=== PATIENT | male | born 1960 | race African-American/Black ===

== ENCOUNTER 2024-06-23 07:11 | Inpatient (IN) | payer MEDICARE ==
[~2024-06-23] VITALS: Ht 170.2 cm; Wt 72.3 kg
[~2024-06-23 07:11] MED LIST: AMLO10TA80 PO; ASPI-1406 PO; ATOR20TA MT; CLOP-31 PO; FAMO20TA8 PO; HYDR100T11 PO; ISOS60TA76 PO; METO25TA6 PO
[2024-06-23 07:35] LABS: BASOPHILS % 0.6 % (0.0-2.0); EOSINOPHILS % 12.6 % (0.0-5.0); HEMOGLOBIN. 11.8 g/dL (14.0-18.0); LYMPHOCYTES % 25.8 % (20.0-50.0); MEAN CORPUSCULAR HEMOGLOBIN 27.3 pg (28.0-32.0); MEAN CORPUSCULAR HGB CONC 31.9 g/dL (31.0-37.0); MEAN CORPUSCULAR VOLUME 85.4 fL (80.0-94.0); MEAN PLATELET VOLUME 9.2 fl (7.4-10.4); PLATELET 154 x1000/uL (130-400); RED BLOOD CELL COUNT 4.33 mill/uL (4.7-6.1); RED CELL DISTRIBUTION WIDTH 15.7 % (11.6-14.6); WHITE BLOOD COUNT 4.8 x1000/uL (4.5-11.0)
[2024-06-23 07:45] LABS: CHLORIDE 111 mEq/L (98-107); POTASSIUM 3.8 mEq/L (3.5-5.1); SODIUM 142 mEq/L (136-145)
[2024-06-23 07:46] LABS: CALCIUM 8.8 mg/dL (8.7-10.4); CARBON DIOXIDE 25 mEq/L (21-32)
[2024-06-23 07:51] LABS: CREATININE 1.5 mg/dL (0.6-1.3); GLUCOSE 113 mg/dL (70-105); UREA NITROGEN BLOOD 17 mg/dL (9-23)
[2024-06-23 07:52] LABS: TROPONIN I HIGH SENSITIVITY 35 ng/L (3.0-53)
[2024-06-23] MEDS: METHYLPREDNISOLONE SOD SUCC 125MG/2ML (ACT-O-VIAL) IV STA (07:53)
[2024-06-23] MEDS: ASPIRIN 81MG TABLET PO ONE (07:54)
[2024-06-23] MEDS: NITROGLYCERIN OINT 1GM/INCH UDPKT TD NR (08:20)
[2024-06-23] MEDS: ALBUTEROL (0.083%) 2.5MG/3ML NEB HHN SCH (08:20)
[2024-06-23 08:21] VITALS: PULSE 80; RESP 22; O2SAT 96
[2024-06-23] MEDS: IPRATROPIUM BROMIDE (0.02%) 0.5MG/2.5ML NEB HHN STA (08:21)
[2024-06-23 09:11] LABS: *AMPHETAMINES SCREEN URINE NEGATIVE (NEGATIVE); *BARBITURATES SCREEN URINE NEGATIVE (NEGATIVE); *BENZODIAZEPINES SCREEN URINE NEGATIVE (NEGATIVE); *COCAINE SCREEN URINE PRESUMPTIVE POSITIVE (NEGATIVE); METHADONE URINE SCREEN NEGATIVE (NEGATIVE)
[2024-06-23 09:12] LABS: CANNABINOID URINE SCREEN PRESUMPTIVE POSITIVE (NEGATIVE); ECSTASY MDMA SCREEN URINE NEGATIVE (NEGATIVE); OPIATES URINE SCREEN NEGATIVE (NEGATIVE); PHENCYCLIDINE URINE SCREEN NEGATIVE (NEGATIVE)
[2024-06-23] MEDS ORDERED: DEXTROSE 50% WATER 50ML SYRINGE IV PRN (10:15)
[2024-06-23] MEDS ORDERED: MAGNESIUM/ALUMINUM HYDROXIDE/SIMETHICONE 30ML UDC PO PRN (10:15)
[2024-06-23] MEDS ORDERED: DOCUSATE SODIUM 100MG CAPSULE PO PRN (10:15)
[2024-06-23] MEDS ORDERED: ONDANSETRON HCL 4MG/2ML INJ IV PRN (10:15)
[2024-06-23] MEDS: METHYLPREDNISOLONE SOD SUCC 40MG/ML (ACT-O-VIAL) IV SCH ×2 (10:52→23:13)
[2024-06-23] MEDS: AMLODIPINE 5MG TABLET PO NR (11:07)
[2024-06-23] MEDS: ENOXAPARIN 40MG/0.4ML SYR SUBCUT SCH (11:07)
[2024-06-23] MEDS: SODIUM CHLORIDE 0.45% 1,000 ML IV SCH (11:07)
[2024-06-23 11:19] LABS: LACTIC ACID 2.7 mmol/L (0.4-2.0); PHOSPHORUS 1.6 mg/dL (2.5-4.9)
[2024-06-23] MEDS: ISOSORBIDE MONONITRATE 60MG TABLET SR 24HR PO SCH (11:55)
[2024-06-23] MEDS ORDERED: IPRATROPIUM/ALBUTEROL 0.5-3(2.5)MG/3ML NEB HHN SCH (12:00)
[2024-06-23] MEDS: HYDRALAZINE 20MG/ML VIAL IV PRN (12:25)
[2024-06-23] MEDS: BLOOD SUGAR DIAGNOSTIC STRIP TEST SCH (13:00)
[2024-06-23] MEDS: POTASSIUM PHOSPHATE 20 MMOL in DEXT 5% WATER 243.3333 ML IV NR (13:19)
[2024-06-23] MEDS: HYDRALAZINE HCL 100MG TABLET PO SCH (14:12)
[2024-06-23 14:58] LABS: CREATINE KINASE MB FRACTION 2.8 ng/mL (0.5-3.6)
[2024-06-23 16:00] VITALS: BP 173/96; PULSE 92; RESP 28; TEMP 36.44736; TEMP 36.4736; O2SAT 96
[2024-06-23] MEDS: HYDRALAZINE 20MG/ML VIAL IV NR (17:40)
[2024-06-23] MEDS: NITROGLYCERIN 0.4MG TABLET SL SL PRN (18:58)
[2024-06-23 19:45] VITALS: PULSE 82; RESP 22; O2SAT 95
[2024-06-23] MEDS: IPRATROPIUM/ALBUTEROL 0.5-3(2.5)MG/3ML NEB HHN SCH (19:47)
[2024-06-23 20:00] VITALS: BP 179/96; PULSE 89; RESP 18; TEMP 36.50292; O2SAT 100
[2024-06-23] MEDS ORDERED: FAMOTIDINE 20MG TABLET PO SCH (21:00)
[2024-06-23] MEDS: FAMOTIDINE 20MG TABLET PO SCH (21:16)
[2024-06-23] MEDS: ATORVASTATIN CALCIUM 20MG TABLET PO SCH (21:16)
[2024-06-23] MEDS: AMLODIPINE 10MG TABLET PO SCH (21:17)
[2024-06-23] MEDS: ZOLPIDEM TARTRATE 5MG TABLET PO NR (23:29)
[2024-06-24] VITALS (9 sets, daily range): BP systolic 118–168; BP diastolic 60–89; PULSE 76–93; RESP 16–22; TEMP 36.44736–36.72516; O2SAT 94–99
[2024-06-24 00:37] LABS: CLARITY URINE CLEAR (CLEAR); COLOR URINE YELLOW (YELLOW); GLUCOSE URINE 1+ (NEGATIVE); KETONES URINE NEGATIVE (NEGATIVE); LEUKOCYTE ESTERASE URINE NEGATIVE (NEGATIVE); NITRITE URINE NEGATIVE (NEGATIVE); OCCULT BLOOD URINE NEGATIVE (NEGATIVE); PROTEIN URINE 1+ (NEGATIVE); SPECIFIC GRAVITY URINE 1.017 (1.005-1.030); UROBILINOGEN URINE 0.2 E.U./dL (0.2-1.0)
[2024-06-24] MEDS: HYDRALAZINE 20MG/ML VIAL IV PRN (01:25)
[2024-06-24 02:13] LABS: CREATINE KINASE MB FRACTION 3.3 ng/mL (0.5-3.6)
[2024-06-24] MEDS: ACETAMINOPHEN 325MG TABLET PO PRN (02:23)
[2024-06-24 02:46] LABS: RBC URINE NONE SEEN /hpf (0-2); WBC URINE 0-2 /hpf (0-2)
[2024-06-24 02:47] LABS: SQUAMOUS EPITHELIAL CELL URINE FEW /lpf (RARE/1+)
[2024-06-24 02:49] LABS: BACTERIA URINE NONE SEEN
[2024-06-24 06:56] LABS: POTASSIUM 4.3 mEq/L (3.5-5.1)
[2024-06-24 06:57] LABS: CALCIUM 9.3 mg/dL (8.7-10.4)
[2024-06-24 07:02] LABS: CREATININE 1.5 mg/dL (0.6-1.3)
[2024-06-24 07:04] LABS: ALBUMIN 4.2 g/dL (3.2-4.8)
[2024-06-24 07:05] LABS: ALANINE AMINOTRANSFERASE 14 IU/L (10-49); ALBUMIN 4.1 g/dL (3.2-4.8); ASPARTATE AMINOTRANSFERASE 21 IU/L (<34); BILIRUBIN DIRECT 0.1 mg/dL (<=3.0); BILIRUBIN TOTAL 0.4 mg/dL (0.1-1.0); PROTEIN TOTAL 7.6 g/dL (6.0-8.3)
[2024-06-24 07:07] LABS: THYROID STIMULATING HORMONE 0.51 uIU/mL (0.55-4.78)
[2024-06-24 07:12] LABS: HEMATOCRIT. 39.1 % (42.0-52.0); HEMOGLOBIN. 12.4 g/dL (14.0-18.0); MEAN CORPUSCULAR HEMOGLOBIN 27.1 pg (28.0-32.0); MEAN CORPUSCULAR HGB CONC 31.8 g/dL (31.0-37.0); MEAN CORPUSCULAR VOLUME 85.3 fL (80.0-94.0); MEAN PLATELET VOLUME 10.2 fl (7.4-10.4); PLATELET 167 x1000/uL (130-400); RED BLOOD CELL COUNT 4.58 mill/uL (4.7-6.1); RED CELL DISTRIBUTION WIDTH 15.7 % (11.6-14.6); WHITE BLOOD COUNT 5.8 x1000/uL (4.5-11.0)
[2024-06-24 07:51] LABS: DIFFERENTIAL COMMENT 1
[2024-06-24] MEDS: CLOPIDOGREL 75MG TABLET PO SCH (08:16)
[2024-06-24] MEDS: ASPIRIN 81MG EC TABLET PO SCH (08:21)
[2024-06-24] MEDS ORDERED: AMLODIPINE 10MG TABLET PO SCH (09:00)
[2024-06-24] MEDS: MONTELUKAST SODIUM 10MG TABLET PO SCH (21:11)
[2024-06-24] MEDS: TERBUTALINE SULFATE 1MG/ML VIAL SUBCUT SCH (21:23)
[2024-06-24] MEDS: THEOPHYLLINE ANHYDROUS 80 MG/15 ML 120ML PO SCH (22:41)
[2024-06-25] VITALS (11 sets, daily range): BP systolic 124–159; BP diastolic 57–79; PULSE 74–106; RESP 18–20; TEMP 36.28068–36.61404; O2SAT 96–100
[2024-06-25 08:17] LABS: HEMATOCRIT 36.7 % (42.0-52.0); HEMOGLOBIN 12.1 g/dL (14.0-18.0); MEAN CORPUSCULAR HEMOGLOBIN 27.9 pg (28.0-32.0); MEAN CORPUSCULAR HGB CONC 32.9 g/dL (31.0-37.0); MEAN CORPUSCULAR VOLUME 84.8 fL (80.0-94.0); PLATELET 186 x1000/uL (130-400); RED BLOOD CELL COUNT 4.33 mill/uL (4.7-6.1); RED CELL DISTRIBUTION WIDTH 15.9 % (11.6-14.6); WHITE BLOOD COUNT 8.6 x1000/uL (4.5-11.0)
[2024-06-25 08:38] LABS: CREATININE 1.7 mg/dL (0.6-1.3)
[2024-06-25] MEDS: IPRATROPIUM/ALBUTEROL 0.5-3(2.5)MG/3ML NEB HHN PRN (10:54)
[2024-06-25 11:15] LABS: PLATELET ESTIMATE NORMAL
[2024-06-25 22:43] LABS: CHLORIDE 109 mEq/L (98-107); POTASSIUM 4.3 mEq/L (3.5-5.1); SODIUM 140 mEq/L (136-145)
[2024-06-25 22:44] LABS: CARBON DIOXIDE 20 mEq/L (21-32)
[2024-06-25 22:49] LABS: GLUCOSE 125 mg/dL (70-105); UREA NITROGEN BLOOD 52 mg/dL (9-23)
[2024-06-25 22:51] LABS: PHOSPHORUS 3.3 mg/dL (2.5-4.9)
[2024-06-25 22:53] LABS: CREATININE 2.3 mg/dL (0.6-1.3)
[2024-06-25 23:18] LABS: DIFFERENTIAL COMMENT 1; HEMATOCRIT. 39.1 % (42.0-52.0); HEMOGLOBIN. 12.4 g/dL (14.0-18.0); MEAN CORPUSCULAR HEMOGLOBIN 26.9 pg (28.0-32.0); MEAN CORPUSCULAR HGB CONC 31.7 g/dL (31.0-37.0); MEAN CORPUSCULAR VOLUME 84.9 fL (80.0-94.0); MEAN PLATELET VOLUME 10.3 fl (7.4-10.4); PLATELET 217 x1000/uL (130-400); RED BLOOD CELL COUNT 4.61 mill/uL (4.7-6.1)
[2024-06-25 23:40] LABS: CREATINE KINASE MB FRACTION 4.8 ng/mL (0.5-3.6)
[2024-06-26] VITALS (10 sets, daily range): BP systolic 113–134; BP diastolic 47–73; PULSE 77–101; RESP 16–22; TEMP 36.16956–37.2252; O2SAT 96–100
[2024-06-26 00:09] LABS: ANISOCYTOSIS 1+; PLATELET ESTIMATE NORMAL
[2024-06-26 07:08] LABS: CREATINE KINASE MB FRACTION 3.7 ng/mL (0.5-3.6)
[2024-06-26 07:13] LABS: CARBON DIOXIDE 21 mEq/L (21-32); CHLORIDE 110 mEq/L (98-107); POTASSIUM 4.3 mEq/L (3.5-5.1); SODIUM 140 mEq/L (136-145)
[2024-06-26 07:14] LABS: CALCIUM 8.6 mg/dL (8.7-10.4)
[2024-06-26 07:17] LABS: CREATININE 2.3 mg/dL (0.6-1.3); T4 FREE 0.84 ng/dL (0.89-1.76); THYROID STIMULATING HORMONE 0.33 uIU/mL (0.55-4.78)
[2024-06-26 07:19] LABS: GLUCOSE 167 mg/dL (70-105); UREA NITROGEN BLOOD 59 mg/dL (9-23)
[2024-06-26 07:21] LABS: PHOSPHORUS 3.2 mg/dL (2.5-4.9)
[2024-06-26 07:23] LABS: HEMATOCRIT. 36.2 % (42.0-52.0); HEMOGLOBIN. 11.6 g/dL (14.0-18.0); MEAN CORPUSCULAR HEMOGLOBIN 27.2 pg (28.0-32.0); MEAN CORPUSCULAR VOLUME 84.8 fL (80.0-94.0); MEAN PLATELET VOLUME 10.1 fl (7.4-10.4); PLATELET 184 x1000/uL (130-400); RED BLOOD CELL COUNT 4.27 mill/uL (4.7-6.1); RED CELL DISTRIBUTION WIDTH 15.9 % (11.6-14.6); WHITE BLOOD COUNT 7.4 x1000/uL (4.5-11.0)
[2024-06-26 07:29] LABS: DIFFERENTIAL COMMENT 1
[2024-06-26] MEDS: IPRATROPIUM/ALBUTEROL 0.5-3(2.5)MG/3ML NEB HHN SCH (11:33)
[2024-06-26] MEDS: MAGNESIUM 2 G PREMIX 50 ML IV NR (12:09)
[2024-06-26] MEDS: METHYLPREDNISOLONE SOD SUCC 125MG/2ML (ACT-O-VIAL) IV SCH (12:10)
[2024-06-26] MEDS: LABETALOL HCL 100MG TABLET PO SCH (14:57)
[2024-06-26 18:00] LABS: PLATELET ESTIMATE NORMAL
[2024-06-27] VITALS (14 sets, daily range): BP systolic 97–160; BP diastolic 45–89; PULSE 62–87; RESP 16–22; TEMP 36.33624–37.2252; O2SAT 95–100
[2024-06-27 08:14] LABS: POTASSIUM 5.8 mEq/L (3.5-5.1)
[2024-06-27 08:15] LABS: CALCIUM 8.3 mg/dL (8.7-10.4)
[2024-06-27 08:20] LABS: CREATININE 2.1 mg/dL (0.6-1.3)
[2024-06-27 08:52] LABS: HEMATOCRIT 37.7 % (42.0-52.0); MEAN CORPUSCULAR HEMOGLOBIN 26.8 pg (28.0-32.0); MEAN CORPUSCULAR VOLUME 83.9 fL (80.0-94.0); PLATELET 189 x1000/uL (130-400); RED BLOOD CELL COUNT 4.49 mill/uL (4.7-6.1); RED CELL DISTRIBUTION WIDTH 15.8 % (11.6-14.6); WHITE BLOOD COUNT 7.9 x1000/uL (4.5-11.0)
[2024-06-27] MEDS: ENOXAPARIN 30MG/0.3ML SYR SUBCUT SCH (09:44)
[2024-06-27] MEDS ORDERED: LABE100T9 PO (12:06)
[2024-06-27] MEDS ORDERED: BUDE6HFA INH (12:06)
[2024-06-27] MEDS ORDERED: ASPI-1406 PO (12:06)
[2024-06-27] MEDS ORDERED: AMLO10TA80 PO (12:06)
[2024-06-27] MEDS ORDERED: HYDR100T31 PO (12:06)
[2024-06-27] MEDS ORDERED: FAMO20TA8 PO (12:06)
[2024-06-27] MEDS ORDERED: CLOP-31 PO (12:06)
[2024-06-27] MEDS ORDERED: ISOS60TA76 PO (12:06)
[2024-06-27] MEDS ORDERED: ALBU90AE INH (12:06)
[2024-06-27] MEDS ORDERED: MONT-46 PO (12:06)
[2024-06-27] MEDS ORDERED: ATOR20TA PO (12:06)
[2024-06-27] MEDS: BUDESONIDE 0.5MG/2ML NEB HHN SCH (18:36)
[2024-06-27] MEDS: DEXTROSE 50% WATER 50ML SYRINGE IV NR (19:45)
[2024-06-27] MEDS: SODIUM POLYSTYRENE SULFONATE 15 G/60 ML BOT PO NR (19:45)
[2024-06-27] MEDS: FUROSEMIDE 100MG/10ML VIAL IV NR (19:45)
[2024-06-27] MEDS: INSULIN REGULAR (HUMULIN R) 1000UNITS/10ML VIAL IV NR (19:46)
[2024-06-27] MEDS: THEOPHYLLINE ANHYDROUS 80 MG/15 ML 120ML PO SCH (22:17)
[2024-06-27] MEDS: CALCIUM CHLORIDE 1GM/10ML SYR IV NR (22:17)
[2024-06-28] VITALS: BP 128/75; PULSE 77; RESP 19; TEMP 36.3918; O2SAT 98
[2024-06-28 03:47] VITALS: PULSE 86; RESP 18; O2SAT 98
[2024-06-28 04:00] VITALS: BP 110/57; PULSE 74; RESP 19; TEMP 36.3918; O2SAT 98
[2024-06-28 04:59] LABS: CALCIUM 8.6 mg/dL (8.7-10.4)
[2024-06-28 05:04] LABS: CREATININE 2.2 mg/dL (0.6-1.3)
[2024-06-28 06:15] LABS: HEMATOCRIT. 37.4 % (42.0-52.0); HEMOGLOBIN. 12.1 g/dL (14.0-18.0); MEAN CORPUSCULAR HEMOGLOBIN 27.2 pg (28.0-32.0); MEAN CORPUSCULAR HGB CONC 32.3 g/dL (31.0-37.0); MEAN CORPUSCULAR VOLUME 84.5 fL (80.0-94.0); MEAN PLATELET VOLUME 10.3 fl (7.4-10.4); PLATELET 183 x1000/uL (130-400); RED BLOOD CELL COUNT 4.43 mill/uL (4.7-6.1); RED CELL DISTRIBUTION WIDTH 15.7 % (11.6-14.6)
[2024-06-28 06:16] LABS: DIFFERENTIAL COMMENT 1
[2024-06-28 08:00] VITALS: BP 144/75; PULSE 140; RESP 18; TEMP 36.44736; O2SAT 95
[2024-06-28 09:22] VITALS: PULSE 63; RESP 17; O2SAT 98
[2024-06-28] MEDS ORDERED: FUROSEMIDE 40MG/4ML VIAL IV NR (10:25)
[2024-06-28] MEDS ORDERED: INSULIN REGULAR (HUMULIN R) 1000UNITS/10ML VIAL IV NR (10:30)
[2024-06-28] MEDS ORDERED: DEXTROSE 50% WATER 50ML SYRINGE IV NR (10:30)
[2024-06-28] MEDS ORDERED: SODIUM POLYSTYRENE SULFONATE 15 G/60 ML BOT PO NR (10:30)
[2024-06-28] MEDS ORDERED: CALCIUM CHLORIDE 1GM/10ML SYR IV NR (11:00)
[2024-06-28 11:17] VITALS: BP 144/93; PULSE 77; TEMP 97.5; O2SAT 98
[2024-06-28] MEDS ORDERED: THEOL PO (12:43)
[2024-06-28] MEDS ORDERED: HYDR100T11 MT (12:43)
[2024-06-28] MEDS ORDERED: ISOS60TA76 MT (12:43)
[2024-06-28] MEDS ORDERED: FURO20TA4 MT (12:43)
[2024-06-28 22:13] LABS: ANISOCYTOSIS 1+; PLATELET ESTIMATE NORMAL
== END 2024-06-28 11:55 | disposition home or self-care (01) | DRG 917 ==
LOC: ER 07:11 → 7EST 09:45 → EDBEDREQ 09:52 → EDBEDREQTM 09:52
PROVIDERS: ADMIT Internal Medicine; ATTEND Internal Medicine
DX: T40.5X1A Poisoning by cocaine, accidental (unintentional), initial encounter (principal); I21.A1 Myocardial infarction type 2; J96.01 Acute respiratory failure with hypoxia; J44.1 Chronic obstructive pulmonary disease with (acute) exacerbation; N17.9 Acute kidney failure, unspecified; J45.901 Unspecified asthma with (acute) exacerbation; I47.20 Ventricular tachycardia, unspecified; R65.10 Systemic inflammatory response syndrome (SIRS) of non-infectious origin without acute organ dysfunction; J68.0 Bronchitis and pneumonitis due to chemicals, gases, fumes and vapors; J44.0 Chronic obstructive pulmonary disease with (acute) lower respiratory infection; I16.0 Hypertensive urgency; E78.00 Pure hypercholesterolemia, unspecified; F17.210 Nicotine dependence, cigarettes, uncomplicated; Z20.822 Contact with and (suspected) exposure to COVID-19; Z86.73 Personal history of transient ischemic attack (TIA), and cerebral infarction without residual deficits; Z79.82 Long term (current) use of aspirin; Z79.899 Other long term (current) drug therapy; Z91.148 Patient's other noncompliance with medication regimen for other reason; Z79.51 Long term (current) use of inhaled steroids; Y92.89 Other specified places as the place of occurrence of the external cause; I25.2 Old myocardial infarction; Z79.02 Long term (current) use of antithrombotics/antiplatelets; D63.1 Anemia in chronic kidney disease; N18.32 Chronic kidney disease, stage 3b; I12.9 Hypertensive chronic kidney disease with stage 1 through stage 4 chronic kidney disease, or unspecified chronic kidney disease; F14.19 Cocaine abuse with unspecified cocaine-induced disorder; F12.19 Cannabis abuse with unspecified cannabis-induced disorder
CPT/HCPCS: 36415; 71045; 80048; 80061; 80076; 80305; 81003; 82040; 82550; 82553; 82962; 83036; 83605; 83735; 83880; 84100; 84145; 84439; 84443; 84480; 84484; 85025; 85027; 87426; 87804; 93005; 93306; 93970; 94640; 97166; 99285; J0360; J1650; J1815; J1940; J2919; J2920; J3105; J3475; J3490; J7060; J7626